=== PATIENT | male | born 1965 | race Two or more races ===

== ENCOUNTER 2017-03-22 17:43 | Emergency (ER) | payer SELFPAY ==
[~2017-03-22] VITALS: Ht 170.2 cm; Wt 87.0 kg
[2017-03-22] MEDS ORDERED: IBUPROFEN 600MG TABLET PO ONE (18:15)
[2017-03-22] MEDS ORDERED: HYDROCODONE/ACETAMINOPHEN 5/325MG TABLET PO ONE (18:15)
[2017-03-22] MEDS ORDERED: LIDOCAINE HCL 1%/EPI 1:200,000 30 ML VIAL MC ONE (18:15)
[2017-03-22] MEDS ORDERED: TETANUS, DIPHTHERIA, PERTUSSIS VAC/PF 0.5ML (>7YR OLD) IM ONE (18:15)
[2017-03-22 19:55] VITALS: BP 131/90
== END 2017-03-22 20:33 | disposition home or self-care (01) ==
LOC: ER 18:03
DX: S81.811A Laceration without foreign body, right lower leg, initial encounter (principal); W34.00XA Accidental discharge from unspecified firearms or gun, initial encounter; Y93.89 Activity, other specified; Y92.89 Other specified places as the place of occurrence of the external cause; Y99.8 Other external cause status
CPT/HCPCS: 12002; 73590; 90471; 90715; 99284; X7700; Z7610